=== PATIENT | female | born 1995 | race Caucasian/White ===

== ENCOUNTER 2023-10-08 18:45 | Outpatient (REF) | payer MEDICAID, SELFPAY ==
[2023-10-08 20:13] LABS: Hemoglobin A1C 5.8 % (<5.7)
[2023-10-08 20:18] LABS: ALT 118 U/L (14-59); AST 49 U/L (15-37); Albumin 3.7 g/dL (3.4-5.0); Alkaline Phosphatase 83 U/L (46-116); Anion Gap 11.5 mmol/L (3-11); BUN 13 mg/dL (7-18); Bilirubin, Total 0.4 mg/dL (0.2-1.0); CO2 24.5 mmol/L (21.0-32.0); CREATININE 0.8 mg/dL (0.55-1.02); Calcium 9.3 mg/dL (8.5-10.1); Calculated LDL 99 mg/dL (<100); Chloride 110 mmol/L (98-107); Cholesterol 167 mg/dL (<200); Estimated GFR 102.86 (mL/min/1.73m2); Glucose 107 mg/dL (74-106); HDL Cholesterol 41 mg/dL (40-60); Potassium 3.7 mmol/L (3.5-5.1); Sodium 146 mmol/L (136-145); Total Protein 7.6 g/dL (6.4-8.2); Triglyceride 139 mg/dL (<150)
== END 2023-10-08 18:46 | disposition home or self-care (01) ==
LOC: NCHCN 18:45
PROVIDERS: Visit Provider Nurse Practitioner Family
DX: R73.03 Prediabetes (principal)
CPT/HCPCS: 80053; 80061; 83036

== ENCOUNTER 2024-06-06 15:01 | Emergency (ER) | payer MEDICAID, SELFPAY ==
[2024-06-06] VITALS (15 sets, daily range): BP systolic 124–146; BP diastolic 71–97; PULSE 77–111; RESP 14–21; TEMP 37; O2SAT 96–99
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
[2024-06-06 15:16] LABS: Abs Immature Grans 0.04 10^3/uL (0.0-0.06); Absolute Basophil Count 0.05 10^3/uL (0.0-0.2); Absolute Eosinophil Count 0.13 10^3/uL (0.0-0.7); Absolute Monocyte Count 0.65 10^3/uL (0.1-0.8); Basophils % 0.5 %; Eosinophils % 1.4 %; HCT 48.1 % (36.0-46.0); HGB 16.2 g/dL (11.2-15.7); Immature Grans % 0.4 %; Lymphocytes % 25.1 %; MCH 29.8 pg (27.0-33.0); MCHC 33.7 % (32.0-36.0); MCV 89 fL (80-95); MPV 8.9 fL (8.0-11.0); Monocytes % 7.1 %; Neutrophils % 65.5 %; Platelet Count 318 10^3/uL (130-400); RBC 5.43 10^6/uL (3.93-5.22); RDW 11.8 % (11.7-14.6); RDW-SD 37.1 fL; WBC 9.17 10^3/uL (4.4-10.8)
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
[2024-06-06] MEDS: Normal Saline - Diluent 50 ML VIAL IJ (15:29)
[2024-06-06 15:30] LABS: ALT 121 U/L (14-59); AST 50 U/L (15-37); Albumin 3.9 g/dL (3.4-5.0); Alkaline Phosphatase 77 U/L (46-116); Anion Gap 10.7 mmol/L (3-11); BUN 10 mg/dL (7-18); Bilirubin, Total 0.36 mg/dL (0.2-1.0); CO2 27.3 mmol/L (21.0-32.0); CREATININE 0.9 mg/dL (0.55-1.02); Calcium 9.5 mg/dL (8.5-10.1); Chloride 106 mmol/L (98-107); Glucose 116 mg/dL (74-106); Magnesium 1.8 mg/dL (1.8-2.4); Sodium 144 mmol/L (136-145); Total Protein 8.2 g/dL (6.4-8.2)
[2024-06-06] MEDS: Omnipaque 350 MG/ML 100 ML BTL IJ (15:30)
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
== END 2024-06-06 16:53 | disposition home or self-care (01) ==
PROVIDERS: Emergency Provider Emergency Medicine
DX: S09.8XXA Other specified injuries of head, initial encounter (principal); T07.XXXA Unspecified multiple injuries, initial encounter; V48.5XXA Car driver injured in noncollision transport accident in traffic accident, initial encounter
CPT/HCPCS: 74177; 80053; 99285; 70450; 70486; 71260; 72125; 83735; 85025; 99284; J3490

== ENCOUNTER 2025-03-23 17:03 | Outpatient (REF) | payer MEDICAID, SELFPAY ==
--- NOTE | 2025-03-23 11:00 | PAPFT_PTH ---
PATIENT: Neha Delcid LOC: [facility] U#:[id number] AGE/SX: 29/F ROOM: RE03/23/[address]: Danni Gabriel : 1995 BED: DIS: 03/23/2025 SPEC #: [id number] RECD: 03/24/25 12:31 STATUS: LUCY RELaurence #: [id number] SABRINA: 03/23/25 11:[address] Cytology RECD BY: Delia Tejada ENTERED: 03/24/25 12:31 SP TYPE: PAPFT OT DR: Unknown,Unknown Tissues: 1 - CX/ENDOCX FOR PAP SMEARS Procedures: PAP THIN PREP/[facility] Screening Comments: [id number] (CHLAMYDIA/GC)
[2025-03-23 20:58] LABS: HCT 44.3 % (36.0-46.0); HGB 14.9 g/dL (11.2-15.7); MCH 29.3 pg (27.0-33.0); MCHC 33.6 % (32.0-36.0); MCV 87 fL (80-95); MPV 9.7 fL (8.0-11.0); Platelet Count 386 10^3/uL (130-400); RBC 5.08 10^6/uL (3.93-5.22); RDW 11.9 % (11.7-14.6); RDW-SD 37.8 fL; WBC 9.85 10^3/uL (4.4-10.8)
[2025-03-23 21:20] LABS: ALT 35 U/L (14-59); AST 27 U/L (15-37); Albumin 4.0 g/dL (3.4-5.0); Alkaline Phosphatase 58 U/L (46-116); Anion Gap 8.9 mmol/L (3-11); BUN 8 mg/dL (7-18); Bilirubin, Total 0.6 mg/dL (0.2-1.0); CO2 24.1 mmol/L (21.0-32.0); Calcium 9.8 mg/dL (8.5-10.1); Chloride 106 mmol/L (98-107); Estimated GFR 102.22 (mL/min/1.73m2); Glucose 101 mg/dL (74-106); Potassium 4.6 mmol/L (3.5-5.1); Sodium 139 mmol/L (136-145); Total Protein 8.1 g/dL (6.4-8.2)
[2025-03-25 11:39] LABS: Chlamydia Result Negative (Negative); GC Result Negative (Negative)
== END 2025-03-23 17:04 | disposition home or self-care (01) ==
LOC: NCHCN 17:03
PROVIDERS: Visit Provider Nurse Practitioner Family
DX: Z12.4 Encounter for screening for malignant neoplasm of cervix (principal)
CPT/HCPCS: 80053; 85027; 87491; 87591; 88142; 87624